=== PATIENT | male | born 1990 | race Caucasian/White ===

== ENCOUNTER 2017-03-29 14:15 | Emergency (ER) | payer OTHER ==
[2017-03-29] MEDS ORDERED: NS 0.9% 1000 ML* 1,000 ML IV ONE (14:34)
[2017-03-29] MEDS ORDERED: Ondansetron INJ* 2 MG/ML VIAL IV ONE (14:34)
[2017-03-29] MEDS ORDERED: Morphine INJ* 4 MG/ML 1 ML SYRINGE IV ONE (14:34)
[2017-03-29 14:43] LABS: Hematocrit 46 % (42-52); Hemoglobin 15.5 g/dl (14.0-18.0); Mean Corpuscular HGB Conc 34 g/dl (31-36); Mean Corpuscular Hemoglobin 29 pg (27-31); Mean Corpuscular Volume 87 fL (80-94); Mean Platelet Volume 8 um3 (7.4-10.4); Red Cell Distribution Width 13 % (10.5-15); White Blood Count 7.7 10^3/ul (3.5-10.8)
[2017-03-29 14:58] LABS: Albumin 4.3 g/dL (3.2-5.2); BUN/Creatinine Ratio 13.6 (8-20); C Reactive Protein 3.48 mg/L (< 5.00); Calcium 9.2 mg/dL (8.6-10.3); EGFR African American 104.1 (>60); EGFR Non-African American 80.9 (>60); Globulin 2.3 g/dL (2-4); Potassium 4.3 mmol/L (3.5-5.0); Total Bilirubin 0.5 mg/dL (0.2-1.0); Total Protein 6.6 g/dL (6.4-8.9)
--- NOTE | 2017-03-29 15:32 | RAD ---
INDICATION: Right foot and ankle pain after a fall from 20 feet COMPARISON: None. TECHNIQUE: 3 views of the right ankle and 3 views of the right foot were obtained. FINDINGS: There is a comminuted fracture involving the right calcaneus. A fracture line is faintly visible from the posterior aspect of the calcaneus extending to the anterior margin of the bone. At approximately the mid point of this fracture line there is a second fracture line extending obliquely towards the plantar surface of the calcaneal tubercle. The remaining visualized bones appear to be intact and otherwise appropriately aligned. IMPRESSION: COMMINUTED FRACTURE OF THE RIGHT CALCANEUS.
--- NOTE | 2017-03-29 15:35 | RAD ---
INDICATION: Back pain after a fall from 20 feet COMPARISON: None. TECHNIQUE: 3 views of the thoracic spine and 3 views of the lumbar spine were obtained. FINDINGS: The vertebra are in normal alignment. At the mid-level thoracic spine there appears to be shortening of the vertebral body heights, but the cortices appear to be intact. There is no definite retropulsion of fragments. The lumbar vertebral bodies are well-corticated and appropriately aligned. No acute fracture is visible. IMPRESSION: No definite radiographic appearance of acute fracture involving the thoracic or lumbar spine. If the patient's symptoms persist further imaging is advised.
--- NOTE | 2017-03-29 15:36 | RAD ---
INDICATION: Pelvic pain after a fall from 20 feet TECHNIQUE: An AP view of the pelvis was obtained. FINDINGS: The bones are in normal alignment. No fracture is seen. Joint spaces appear maintained. IMPRESSION: NO EVIDENCE FOR FRACTURE. IF THE PATIENT'S SYMPTOMS PERSIST RECOMMEND FOLLOW-UP IMAGING.
--- NOTE | 2017-03-29 16:26 | RAD ---
INDICATION: Trauma. COMPARISON: None. TECHNIQUE: Noncontrast CT examination of the right foot. Axial images were acquired and sagittal and coronal reformats were created and independently analyzed. FINDINGS: Depicted on multiple planes there is a comminuted fracture involving the entire calcaneus with very little displacement of the assorted bony fragments. Depicted on the axial plane (image 23) the main fracture planes running the AP projection from the posterior medial aspect of the calcaneus towards the midportion of the bone extending obliquely to the lateral anterior corner of the calcaneus at its articulation with the cuboid bone. Creating somewhat of an "X shaped" configuration there is a similar oblique fracture plane extending from the posterior lateral margin of the calcaneus medially towards the anterior medial portion of the bone abutting the proximal lateral aspect of the navicular bone. The remaining visualized bones of the foot and ankle appear to be intact and appropriately aligned. IMPRESSION: Complex comminuted fracture of the calcaneus as described above. The remaining visualized bones appear to be intact.
[2017-03-29] MEDS ORDERED: oxyCODONE/Acetamin 5/325 MG* TAB PO PRN (16:59)
[2017-03-29] MEDS ORDERED: Morphine INJ* 4 MG/ML 1 ML SYRINGE SUBCUT ONE (16:59)
[2017-03-29] MEDS ORDERED: Morphine INJ* 4 MG/ML 1 ML SYRINGE IV PRN (18:00)
[2017-03-29] MEDS ORDERED: Ondansetron INJ* 2 MG/ML VIAL ONE (18:11)
[2017-03-29 18:20] VITALS: BP 110/59
--- NOTE | 2017-03-29 18:53 | ED ---
Chelita Tyler Thomas, scribed for Maxime Meyer MD on 03/29/17 at 1434 . Lower Extremity - HPI Summary HPI Summary: The pt is a 26 y/o M presenting to the ED c/o R ankle pain that began today at 13:50 s/p falling 18-25 feet while rock climbing. The patient reports that nothing alleviates the pain. The pain is worsened with movement. The pain is rated 10/10. The patient reports that he took Suboxone today, and that is what is making me groggy. The patient also takes Abilify and Lamotrigine. The patient denies taking any other drugs, pain medications, or alcohol today. Pt additionally c/o an abrasion to his R foot. Pt denies back pain and trauma to his head. PMHx: bipolar disorder. PSHx: none. SHx: smoking, former addict, occasional alcohol, the pt denies any current illicit drug use. FHx: DM - History of Current Complaint Chief Complaint: EDExtremityLower Stated Complaint: RT ANKLE INJURY Hx Obtained From: Patient, Family/Assistant Foreman - family member in room Mechanism Of Injury: Fall From Height Of: - 18-25 feet Onset of Pain: Immediate Onset/Duration: Still Present - at 13:50 Severity Currently: Severe Pain Intensity: 10 Pain Scale Used: 0-10 Numeric Timing: Constant Associated Signs And Symptoms: Positive: Other - NEG: back pain, trauma to head Aggravating Factor(s): Movement Alleviating Factor(s): Nothing - Allergies/Home Medications Allergies/Adverse Reactions: Allergies Allergy/AdvReac Type Severity Reaction Status Date / Time No Known Allergies Allergy Verified 03/29/17 14:45 PMH/Surg Hx/FS Hx/Imm Hx Previously Healthy: No Endocrine/Hematology History: Denies: Hx Anticoagulant Therapy Psychiatric History: Reports: Hx Bipolar Disorder - Surgical History Surgery Procedure, Year, and Place: None Infectious Disease History: No Infectious Disease History: Denies: Traveled Outside the [place] in Last 30 Days - Family History Known Family History: Positive: Diabetes - Social History Alcohol Use: Occasionally Hx Substance Use: Yes Substance Use Type: Reports: Other - unspecified, but currently takes Suboxone Hx Tobacco Use: Yes Smoking Status (MU): Current Every Day Smoker Type: Cigarettes Review of Systems Constitutional: Negative Negative: Fever Eyes: Negative ENT: Negative Cardiovascular: Negative Respiratory: Negative Gastrointestinal: Negative Genitourinary: Negative Positive: Other - POS: R ankle pain s/p rock climbing fall; NEG: back pain, head trauma Positive: Other - POS: abrasion to R foot Neurological: Other - POS: grogginess Psychological: Normal All Other Systems Reviewed And Are Negative: Yes Physical Exam - Summary Physical Exam Summary: VITAL SIGNS: Reviewed. GENERAL: ~Patient is a well-developed and nourished male who is lying comfortable in the stretcher. ~Patient is not in any acute respiratory distress. HEAD AND FACE: No signs of trauma. ~No ecchymosis, hematomas or skull depressions. No sinus tenderness. EYES: PERRLA, EOMI x 2, No injected conjunctiva, no nystagmus. EARS: Hearing grossly intact. Ear canals and tympanic membranes are within normal limits. MOUTH: Oropharynx within normal limits. NECK: Supple, trachea is midline, no adenopathy, no JVD, no carotid bruit, no c- spine tenderness, neck with full ROM. CHEST: Symmetric, no tenderness at palpation LUNGS: Clear to auscultation bilaterally. No wheezing or crackles. CVS: Regular rate and rhythm, S1 and S2 present, no murmurs or gallops appreciated. ABDOMEN: Soft, non-tender. No signs of distention. No rebound no guarding, and no masses palpated. Bowel sounds are normal. EXTREMITIES: R ankle pain with no deformities. Good pulses, good cap refill, neurovascular function intact. Decreased ROM secondary to pain. Otherwise, FROM in all other major joints, no edema, no cyanosis or clubbing. NEURO: He is a little groggy. Alert and oriented x 3. No acute neurological deficits. Speech is normal and follows commands. SKIN: Dry and warm. No ecchymosis. Abrasion to R leg. Triage Information Reviewed: Yes Vital Signs On Initial Exam: Initial Vitals Temp Pulse Resp BP Pulse Ox 99 F 90 16 102/55 98 03/29/17 14:16 03/29/17 14:16 03/29/17 14:16 03/29/17 14:16 03/29/17 14:16 Vital Signs Reviewed: Yes Diagnostics - Vital Signs Vital Signs Temp Pulse Resp BP Pulse Ox 03/29/17 14:16 99 F 90 16 102/55 98 - Laboratory Lab Results: Lab Results 03/29/17 03/29/17 03/29/17 Range/Units 14:35 14:35 14:35 WBC 7.7 (3.5-10.8) 10^3/ul RBC 5.30 (4.0-5.4) 10^6/ul Hgb 15.5 (14.0-18.0) g/dl Hct 46 (42-52) % MCV 87 (80-94) fL MCH 29 (27-31) pg MCHC 34 (31-36) g/dl RDW 13 (10.5-15) % Plt Count 177 (150-450) 10^3/ul MPV 8 (7.4-10.4) um3 Neut % (Auto) 70.1 (38-83) % Lymph % (Auto) 16.7 L (25-47) % [place] % (Auto) 6.0 (1-9) % Eos % (Auto) 6.2 H (0-6) % Baso % (Auto) 1.0 (0-2) % Absolute Neuts (auto) 5.4 (1.5-7.7) 10^3/ul Absolute Lymphs (auto) 1.3 (1.0-4.8) 10^3/ul Absolute Monos (auto) 0.5 (0-0.8) 10^3/ul Absolute Eos (auto) 0.5 (0-0.6) 10^3/ul Absolute Basos (auto) 0.1 (0-0.2) 10^3/ul Absolute Nucleated RBC 0 10^3/ul Nucleated RBC % 0 Sodium 136 (133-145) mmol/L Potassium 4.3 (3.5-5.0) mmol/L Chloride 102 (101-111) mmol/L Carbon Dioxide 31 (22-32) mmol/L Anion Gap 3 (2-11) mmol/L BUN 15 (6-24) mg/dL Creatinine 1.10 (0.67-1.17) mg/dL Est GFR ( Amer) 104.1 (>60) Est GFR (Non-Af Amer) 80.9 (>60) BUN/Creatinine Ratio 13.6 (8-20) Glucose 104 H (70-100) mg/dL Calcium 9.2 (8.6-10.3) mg/dL Total Bilirubin 0.50 (0.2-1.0) mg/dL AST 19 (13-39) U/L ALT 11 (7-52) U/L Alkaline Phosphatase 65 (34-104) U/L C-Reactive Protein 3.48 (< 5.00) mg/L Total Protein 6.6 (6.4-8.9) g/dL Albumin 4.3 (3.2-5.2) g/dL Globulin 2.3 (2-4) g/dL Albumin/Globulin Ratio 1.9 (1-3) Blood Type A Positive Antibody Screen Negative Result Diagrams: 03/29/17 14:35 03/29/17 14:35 Lab Statement: Any lab studies that have been ordered have been reviewed, and results considered in the medical decision making process. - Radiology L-Spine XR Xray Interpretation: No Acute Changes - no definite radiographic appearance of acute fracture involving the thoracic or lumbar spine Radiology Interpretation Completed By: Radiologist T-Spine XR Xray Interpretation: No Acute Changes - no definite radiographic appearance of acute fracture involving the thoracic or lumbar spine Radiology Interpretation Completed By: Radiologist Pelvix XR Xray Interpretation: No Acute Changes - No evidence for Fx Radiology Interpretation Completed By: Radiologist Foot XR Xray Interpretation: Positive (See Comments) - COMMINUTED FRACTURE OF THE RIGHT CALCANEUS. Radiology Interpretation Completed By: Radiologist Ankle XR Xray Interpretation: Positive (See Comments) - COMMINUTED FRACTURE OF THE RIGHT CALCANEUS. Radiology Interpretation Completed By: Radiologist - CT CT Lower Extremity CT Interpretation: Positive (See Comments) - complex comminuted fracture of the calcaneus as described above. The remaining visualized bones appear to be intact. CT Interpretation Completed By: Radiologist Re-Evaluation - Re-Evaluation First Eval Re-Evaluation Time: 15:50 Change: Unchanged Lower Extremity Course/Dx - Course Assessment/Plan: The pt is a 26 y/o M presenting to the ED c/o R ankle pain that began today at 13:50 s/p falling 18-25 feet while rock climbing. The patient reports that nothing aggravates or alleviates the pain. The pain is worsened with movement. The pain is rated 10/10. The patient also takes ability and Lamotrigine. The patient denies taking any other drugs, pain medications, or alcohol today. Pt additionally c/o an abrasion to his R foot. Pt denies back pain and trauma to his head. PMHx: bipolar disorder. PSHx: none. SHx: smoking, former addict, occasional alcohol, the pt denies any current illicit drug use. FHx: DM. In my physical exam cleared the c spine. No tenderness in the c spine or neck soft tissue. No signs of injury. Head: no hematoma, no skull depressions. Therefore I did order a head CT or C spine CT. T-spine XR reveals no definite radiographic appearance of acute fracture involving the thoracic or lumbar spine. L-spine XR reveals no definite radiographic appearance of acute fracture involving the thoracic or lumbar spine. Pelvis XR reveals no evidence for Fx. Foot XR reveals COMMINUTED FRACTURE OF THE RIGHT CALCANEUS. Ankle XR reveals COMMINUTED FRACTURE OF THE RIGHT CALCANEUS. CT Lower Extremity reveals complex comminuted fracture of the calcaneus as described above. The remaining visualized bones appear to be intact. I discussed the case with Dr. Darnell, orthopedics, who reviewed the XRs and CTs of the foot. He recommends to place the patient in a Barrios dressing with a posterior splint and discharge the patient with follow-up with orthopedics in the next few days. A Barrios dressing was placed with no complications. After this placement and dressing placement, there is still good capillary refill and neurovascular is intact. The patient will be given another dose of morphine for pain. Since the patient has a long drive to [place], he will be given 3 tablets of Percocet to be taken 1 tablet as needed every 3-6 hours. He is alert and oriented x 3 and he is hemodynamically stable. He understands that his foot is [id number] and he will follow up with orthopedics as soon as possible. He was also advised to go to nearest emergency department or return to [facility] if pain worsens despite the pain medications, numbness, weakness or any other complaint. Otherwise, follow up with an orthopedic physician back home. Patient is hemodynamically stable alert and oriented x 3. - Diagnoses Differential Diagnosis/HQI/PQRI: Positive: Bursitis, Cellulitis, Contusion, Dislocation, Fracture (Closed), Sprain, Strain, Tendonitis Provider Diagnoses: Calcaneal fracture - Physician Notifications Discussed Care Of Patient With: [place] Darnell Time Discussed With Above Provider: 15:50 Instructed by Provider To: Other - Discussed patient care. He came to see the patient in the ED. Discharge - Discharge Plan Condition: Stable Disposition: HOME Patient Education Materials: Calcaneal Fracture (ED) Additional Instructions: Follow up with an orthopedist in [place]. The documentation as recorded by the Chelita marte Thomas accurately reflects the service I personally performed and the decisions made by me, Maxime Meyer MD.
== END 2017-03-29 18:27 | disposition home or self-care (01) ==
LOC: ED 14:15
DX: S92.001A Unspecified fracture of right calcaneus, initial encounter for closed fracture (principal); S90.811A Abrasion, right foot, initial encounter; W17.89XA Other fall from one level to another, initial encounter; Y93.31 Activity, mountain climbing, rock climbing and wall climbing; Y92.9 Unspecified place or not applicable; F31.9 Bipolar disorder, unspecified; F17.210 Nicotine dependence, cigarettes, uncomplicated
CPT/HCPCS: 36415; 72070; 72100; 72170; 80053; 85025; 86140; 86850; 86900; 86901; 96374; 96375; 99283; A9270-GY; J2270; J2405